=== PATIENT | female | born 1975 | race Caucasian/White ===

== ENCOUNTER 2017-06-30 08:55 | Outpatient (CLI) | payer OTHER | END 2017-06-30 23:59 | disposition home or self-care (01) | LOC: RAD 08:55 | PROVIDERS: ATTEND Family Medicine | DX: R10.11 Right upper quadrant pain (principal); K80.80 Other cholelithiasis without obstruction | CPT/HCPCS: 76700 ==

== ENCOUNTER 2017-08-03 06:26 | Day surgery (SDC) | payer OTHER ==
[2017-08-01 09:51] LABS: BASOPHILS % (AUTO) 0.7 % (0-1); EOSINOPHILS # (AUTO) 0.1 X10'3 (0-0.9); EOSINOPHILS % (AUTO) 1.4 % (0-6); LYMPHOCYTES # (AUTO) 2.3 X10'3 (1.1-4.8); LYMPHOCYTES % (AUTO) 30.9 % (21-51); MEAN CORPUSCULAR HEMOGLOBIN 30.9 PG (27.0-31.0); MEAN CORPUSCULAR HGB CONC 34.7 % (33.0-36.5); MEAN CORPUSCULAR VOLUME 89.1 FL (78-98); MEAN PLATELET VOLUME 9.2 FL (7.4-10.4); MONOCYTES # (AUTO) 0.5 X10'3 (0-0.9); MONOCYTES % (AUTO) 6.2 % (2-12); NEUTROPHILS # (AUTO) 4.5 X10'3 (1.8-7.7); NEUTROPHILS % (AUTO) 60.8 % (42-75); PRE OP HEMATOCRIT 35.1 % (35.0-45.0); PRE OP HEMOGLOBIN 12.2 g/dL (12.0-16.0); PRE OP PLATELET COUNT 246 X10'3 (140-440); RED BLOOD COUNT 3.94 X10'6 (4.20-5.60); RED CELL DISTRIBUTION WIDTH 13.1 % (11.5-14.5)
[2017-08-01 09:54] LABS: CLARITY,URINE SLIGHTLY CLOUDY (Clear); COLOR,URINE YELLOW (Yellow); GLUCOSE, URINE NEGATIVE (Neg); KETONES,URINE NEGATIVE (Neg); LEUKOCYTE ESTERASE ,URINE NEGATIVE (Neg); NITRITES, URINE NEGATIVE (Neg); OCCULT BLOOD,URINE SMALL (Neg); PROTEIN,URINE NEGATIVE (Neg); UROBILINOGEN,URINE 0.2 E.U/dL (0.2-1.0)
[2017-08-01 09:55] LABS: UA COLLECTION TYPE CLN CATCH MIDSTREAM
[2017-08-01 10:12] LABS: ALBUMIN 3.6 G/DL (3.4-5.0); ALKALINE PHOSPHATASE 57 IU/L (46-116); BLOOD UREA NITROGEN 22 MG/DL (7-18); BUN/CREATININE RATIO 29.7 (6.6-38.0); CALCIUM 8.9 MG/DL (8.5-10.1); CHLORIDE 103 MMOL/L (99-107); CREATININE 0.74 MG/DL (0.40-0.90); PRE OP ALT 20 U/L (30-65); PRE OP ANION GAP 8 (8-16); PRE OP AST 14 U/L (10-37); PRE OP BILIRUB, TOTAL 0.5 MG/DL (0.0-1.0); PRE OP GLUCOSE 114 MG/DL (70-104); PRE OP POTASSIUM 3.5 MMOL/L (3.4-5.1); PRE OP SODIUM 140 MMOL/L (135-145); TOTAL CARBON DIOXIDE 28.8 MMOL/L (24-32); TOTAL PROTEIN 7.3 G/DL (6.4-8.2); eGFR 86 ML/MIN
[2017-08-01 10:26] LABS: HCG SERUM QL NEGATIVE
[2017-08-01 10:27] LABS: BACTERIA,URINE FEW /HPF (Neg); MUCUS STRANDS NONE SEEN /LPF (Neg); SQUAMOUS EPITHELIAL CELL,UR MANY /LPF (FEW); WBC,URINE NONE SEEN /HPF (0-4)
[~2017-08-03] VITALS: Ht 160 cm; Wt 81.0 kg
[2017-08-03] VITALS (10 sets, daily range): BP systolic 112–156; BP diastolic 73–95
[~2017-08-03 06:26] MED LIST: CHLO25TA10 PO; ESCI10TA54 PO; LISI-604 PO; cefoxitin sod inj 2,000 MG in dextrose 5%-water 50ml 50 ML IV ONE; famotidine 20mg tablet PO ONE; ringers solution, lacted 1,000 ML IV SCH
[2017-08-03] MEDS ORDERED: LIDOcaine 1% (10mg/ml) 2ml vial ONE (06:41)
[2017-08-03] MEDS ORDERED: BUPIVAcaine/PF 2.5 mg/ml (0.25%) 30ml vial ONE (07:04)
[2017-08-03] MEDS ORDERED: ceFAZolin 1000mg inj ONE (07:04)
[2017-08-03] MEDS ORDERED: midazolam 2 mg/2 ml injection ONE (08:12)
[2017-08-03] MEDS ORDERED: sevoflurane 250ml liquid IH ONE (08:13)
[2017-08-03] MEDS ORDERED: fentaNYL /PF 50mcg/ml 5ml ampule ONE (08:13)
[2017-08-03] MEDS ORDERED: propofol inj 20 ML IV ONE (08:36)
[2017-08-03] MEDS ORDERED: rocuronium 10mg/ml inj IV ONE (08:36)
[2017-08-03] MEDS ORDERED: dexamethasone sod phosphate 4mg/ml inj. ONE (08:36)
[2017-08-03] MEDS ORDERED: LIDOcaine 2% (20mg/ml) 5ml vial ONE (08:36)
[2017-08-03] MEDS ORDERED: ondansetron/PF 4mg/2ml inj ONE (08:36)
[2017-08-03] MEDS ORDERED: ringers solution, lacted 1,000 ML IV ONE (08:41)
[2017-08-03] MEDS ORDERED: neostigmine methylsulfate 1 MG/ML 10ml vial ONE (08:45)
[2017-08-03] MEDS ORDERED: glycopyrrolate 0.2mg/ml inj ONE (08:45)
[2017-08-03] MEDS ORDERED: ondansetron/PF 4mg/2ml inj IV PRN (08:45)
[2017-08-03] MEDS ORDERED: meperidine/PF 50mg/ml syringe IV PRN (08:45)
[2017-08-03] MEDS ORDERED: hydrALAZINE 20mg/ml inj. IV PRN (08:45)
[2017-08-03] MEDS ORDERED: meperidine/PF 50mg/ml syringe IV ONE (08:45)
[2017-08-03] MEDS ORDERED: labetalol 20mg/4ml (5mg/ml) syringe IV PRN (08:45)
[2017-08-03] MEDS ORDERED: morphine 4 MG/ML inj SYRINge IV PRN (08:45)
[2017-08-03] MEDS: meperidine/PF 50mg/ml syringe IV PRN ×2 (09:02→09:31)
[2017-08-03] MEDS: morphine 4 MG/ML inj SYRINge IV PRN ×2 (09:15→09:26)
== END 2017-08-03 10:15 | disposition home or self-care (01) ==
LOC: PAS 06:26
PROVIDERS: ATTEND Surgery
DX: K81.1 Chronic cholecystitis (principal); I10 Essential (primary) hypertension; F32.9 Major depressive disorder, single episode, unspecified; Z88.6 Allergy status to analgesic agent; Z72.89 Other problems related to lifestyle; Z87.891 Personal history of nicotine dependence; Z79.899 Other long term (current) drug therapy; Z98.890 Other specified postprocedural states
CPT/HCPCS: 36415; 47562; 80053; 81001; 84703; 85025; 93005; J0690; J0694; J1100; J2001; J2175; J2250; J2270; J2405; J2704; J2710; J3010; J3490; J7060; J7120; A7000

== ENCOUNTER 2017-08-05 13:19 | Emergency (ER) | payer OTHER ==
[~2017-08-05] VITALS: Ht 160 cm; Wt 79.0 kg
[~2017-08-05 13:19] MED LIST changes: -cefoxitin sod inj 2,000 MG in dextrose 5%-water 50ml 50 ML IV ONE; -famotidine 20mg tablet PO ONE; -ringers solution, lacted 1,000 ML IV SCH
[2017-08-05] MEDS ORDERED: morphine 4 MG/ML inj SYRINge IV ONE (13:25)
[2017-08-05] MEDS ORDERED: ondansetron/PF 4mg/2ml inj IV ONE (13:25)
[2017-08-05] MEDS ORDERED: normal saline 1000ML IV soln IVB ONE (13:25)
[2017-08-05 13:57] LABS: BASOPHILS % (AUTO) 0.1 % (0-1); EOSINOPHILS % (AUTO) 0 % (0-6); HEMATOCRIT 37.2 % (35.0-45.0); LYMPHOCYTES # (AUTO) 1.3 X10'3 (1.1-4.8); MEAN CORPUSCULAR HEMOGLOBIN 30.8 PG (27.0-31.0); MEAN CORPUSCULAR VOLUME 88.1 FL (78-98); MEAN PLATELET VOLUME 8.8 FL (7.4-10.4); MONOCYTES # (AUTO) 0.4 X10'3 (0-0.9); NEUTROPHILS # (AUTO) 12.5 X10'3 (1.8-7.7); NEUTROPHILS % (AUTO) 87.9 % (42-75); PLATELET COUNT 254 X10'3 (140-440); RED BLOOD COUNT 4.22 X10'6 (4.20-5.60); RED CELL DISTRIBUTION WIDTH 12.7 % (11.5-14.5); WHITE BLOOD COUNT 14.2 X10'3 (4.5-11.0)
[2017-08-05] MEDS: MORPHINE 2MG in 2ml NS syringe IV PRN ×2 (13:59→15:20)
[2017-08-05 14:14] LABS: ALANINE AMINOTRANSFERASE 37 U/L (12-78); ALBUMIN 3.5 G/DL (3.4-5.0); ALKALINE PHOSPHATASE 63 IU/L (46-116); ANION GAP 15 (8-16); ASPARTATE AMINO TRANSFERASE 23 U/L (10-37); BILIRUBIN,TOTAL 0.8 MG/DL (0.1-1.0); BLOOD UREA NITROGEN 12 MG/DL (7-18); BUN/CREATININE RATIO 15.8 (6.6-38.0); CALCIUM 8.5 MG/DL (8.5-10.1); CHLORIDE 99 MMOL/L (99-107); CREATININE 0.76 MG/DL (0.40-0.90); GLUCOSE 132 MG/DL (70-104); LIPASE < 50 U/L (73-393); SODIUM 137 MMOL/L (135-145); TOTAL CARBON DIOXIDE 23.1 MMOL/L (24-32); TOTAL PROTEIN 7.1 G/DL (6.4-8.2); eGFR 84 ML/MIN
[2017-08-05 14:17] LABS: POTASSIUM 2.8 MMOL/L (3.5-5.1)
[2017-08-05 14:58] LABS: CLARITY,URINE CLEAR (Clear); COLOR,URINE YELLOW (Yellow); GLUCOSE, URINE NEGATIVE (Neg); KETONES,URINE 15 mg/dl (Neg); LEUKOCYTE ESTERASE ,URINE NEGATIVE (Neg); NITRITES, URINE NEGATIVE (Neg); OCCULT BLOOD,URINE LARGE (Neg); PH,URINE 7.5 (4.8-8.0); PROTEIN,URINE NEGATIVE (Neg); UA COLLECTION TYPE CLN CATCH MIDSTREAM; UROBILINOGEN,URINE 0.2 E.U/dL (0.2-1.0)
[2017-08-05 15:04] LABS: URINE HCG NEGATIVE (NEG)
[2017-08-05 15:12] LABS: BACTERIA,URINE NONE SEEN /HPF (Neg); MUCUS STRANDS NONE SEEN /LPF (Neg); RBC,URINE 0-2 /HPF (0-2); SQUAMOUS EPITHELIAL CELL,UR FEW /LPF (FEW); WBC,URINE NONE SEEN /HPF (0-4)
[2017-08-05] MEDS ORDERED: ONDA8TAB9 PO (16:20)
[2017-08-05] MEDS ORDERED: OXYC-145 PO (16:20)
[2017-08-05] MEDS ORDERED: oxyCODONE/APAP 5-325mg tablet PO ONE (16:25)
[2017-08-05] MEDS ORDERED: ondansetron 4mg rapidly disintigrating tab PO ONE (16:25)
[2017-08-05 17:22] VITALS: BP 164/91
== END 2017-08-05 17:30 | disposition home or self-care (01) ==
LOC: ER 13:20
DX: G89.18 Other acute postprocedural pain (principal); I10 Essential (primary) hypertension; Z90.49 Acquired absence of other specified parts of digestive tract; Z88.5 Allergy status to narcotic agent; Z79.899 Other long term (current) drug therapy
CPT/HCPCS: 36415; 71045; 76700; 80053; 81001; 81025; 83690; 85025; 93005; 96374; 96375; 96376; 99285; J2270; J2274; J2405; J7030

== ENCOUNTER → 2018-01-20 | Outpatient (CLI) | payer OTHER ==
[~2018-01-20] MED LIST changes: +ONDA8TAB9 PO; +OXYC-145 PO; +iohexol 300mg/ml 100ml inj. ONE
== END | disposition home or self-care (01) ==
LOC: 64 CT 15:18
PROVIDERS: ATTEND Family Medicine
DX: I70.0 Atherosclerosis of aorta (principal); I10 Essential (primary) hypertension; M54.9 Dorsalgia, unspecified; Z87.891 Personal history of nicotine dependence
CPT/HCPCS: 74178; 87088; Q9967